=== PATIENT | male | born 1940 | race Caucasian/White ===

== ENCOUNTER → 2021-06-27 | Outpatient (CLI) | payer MEDICARE ==
[~2021-06-27] MED LIST: AMBIEN5 MG PO; BREO ELLIPTA 11 EACH INH; COSOPT OPTH SOL10 ML EYEBOTH; COUMADIN10 MG PO; COZAAR25 MG PO; CYCLOBENZAPRINE5 MG PO; CYMBALTA 30 MG30 MG PO; ECOTRIN81 MG PO; ELIQUIS5 MG PO; ERYTHROMYCIN O3.5 GM OU; GLUCOPHAGE1000 MG PO; HUMULIN N100 UNIT/1 SC; HUMULIN R100 UNIT/1 INJ; HUMULIN R100 UNIT/1 SQ; LANTUS SOL100 UNIT/1 SQ; LATANOPROST2.5 ML OP; LEVOFLOXACIN500 MG PO; LIPITOR TAB 2020 MG PO; LOPRESSOR 25 MG25 MG PO; METOPROLOL TART25 MG PO; NORCO 7.5-3251 EACH PO; OZEMPIC1 MG/0.75 SQ; PREDFORTE OP SUS5 ML OU; PROTONIX40 MG PO; SYNTHROID25 MCG PO; TAMBOCOR 100 M100 MG PO; VALACYCLOVIR1000 MG PO; VALTREX1000 MG PO; VENTOLIN HFA 66.7 GM INH
== END ==
LOC: KOH-I 12:42
DX: M50.30 Other cervical disc degeneration, unspecified cervical region (principal); M43.22 Fusion of spine, cervical region
CPT/HCPCS: 72125

== ENCOUNTER → 2022-02-14 | Outpatient (CLI) | payer MEDICARE | LOC: LAB 11:35 | DX: U07.1 COVID-19 (principal) | CPT/HCPCS: U0002 ==